=== PATIENT | male | born 1975 | race American Indian/Alaskan Native ===

== ENCOUNTER 2018-04-06 06:41 | Day surgery (SDC) | payer OTHER, SELFPAY ==
[2018-04-06 08:51] LABS: Basophils # (Auto) 0.1 K/mm3 (0.0-0.1); Basophils % (Auto) 1.2 % (0.0-1.8); Eosinophils # (Auto) 0.3 K/mm3 (0.0-0.4); Eosinophils % (Auto) 6.8 % (0.0-4.3); Hematocrit 41.1 % (35.5-45.6); Hemoglobin 13.6 gm/dl (11.8-15.2); Lymphocytes # (Auto) 1.4 K/mm3 (1.2-5.4); Lymphocytes % (Auto) 31.8 % (13.4-35.0); Mean Corpuscular HGB Conc 33 % (32-34); Mean Corpuscular Hemoglobin 27 pg (28-32); Mean Corpuscular Volume 82 fl (84-94); Monocytes # (Auto) 0.4 K/mm3 (0.0-0.8); Monocytes % (Auto) 9.3 % (0.0-7.3); Platelet Count 204 K/mm3 (140-440); Red Blood Count 5.05 M/mm3 (3.65-5.03); Red Cell Distribution Width 13.7 % (13.2-15.2)
[2018-04-06] MEDS ORDERED: NACL 0.9% 500 ML 500 ML IV SCH (09:00)
[2018-04-06 09:01] LABS: INR 0.92 (0.87-1.13)
[2018-04-06 09:03] LABS: BUN/Creatinine Ratio 14; Blood Urea Nitrogen 14 mg/dL (9-20); Calcium 8.7 mg/dL (8.4-10.2); Hemolysis Index 8
[2018-04-06] MEDS ORDERED: CALAN ONE (11:41)
[2018-04-06] MEDS ORDERED: HEPARIN 10,000 UNITS/10 ML ONE (11:41)
[2018-04-06] MEDS ORDERED: SUBLIMAZE ONE (11:41)
[2018-04-06] MEDS ORDERED: HEPARIN/NS 5000 UNIT/500ML(CATH LAB) 1,000 ML IR ONE (11:41)
[2018-04-06] MEDS ORDERED: XYLOCAINE 2% INFILTRATI ONE (11:41)
[2018-04-06] MEDS ORDERED: VERSED ONE (11:41)
[2018-04-06] MEDS ORDERED: NITROGLYCERIN SYRINGE 3 ML ONE (11:42)
--- NOTE | 2018-04-06 13:50 | Cardiac Catherization Report ---
CARDIAC CATHETERIZATION REASON FOR PROCEDURE: Chest pain and abnormal thallium stress test. PROCEDURES: 1. Left heart catheterization. 2. Selective left and right coronary angiography. 3. Left ventricular angiography. 4. Sedation time, start 12:23 and end 12:41. The patient was prepped and draped in a sterile fashion after informed consent. The right radial cath site was prepped and draped after a negative Alli's test. The right radial artery was entered using Seldinger technique, followed by placement of a 6-Uzbek hydrophilic sheath. Selective left and right coronary angiography was performed using #3.5 left Sam, and a #4 right Sam. Angiography of the left ventricle was performed using a pigtail catheter. The catheters were removed, sheath removed, and hemostasis achieved using a TR band. The patient was returned to the postprocedural unit in stable condition. There were no complications. FINDINGS: HEMODYNAMICS: Left ventricular end-diastolic pressure was 15. This was following coronary angiography. Ascending aortic pressure was 150/102. There was no significant pressure gradient on pullback across the aortic valve. CORONARY ANGIOGRAPHY: Left main coronary artery was angiographically normal. There were mild irregularities of the diagonal branches of the LAD, otherwise the LAD system was free of significant disease. The circumflex artery contained mild luminal narrowing in its mid obtuse marginal branch. The right coronary artery was dominant and essentially angiographically normal. The left ventricle was moderately to severely dilated. There was severe left ventricular systolic dysfunction, ejection fraction estimated at 20%. CONCLUSION: 1. Mild irregularities as above, no significant obstructive coronary disease. 2. Dilated, nonischemic cardiomyopathy, severe left ventricular systolic dysfunction, ejection fraction estimated at 20%. RECOMMENDATION: 1. Medical therapy for nonischemic cardiomyopathy. 2. Risk factor modification. JOB# [id number] CA/NTS
--- NOTE | 2018-04-06 14:32 | Discharge Summary ---
Short Stay Discharge Plan Activity: advance as tolerated Weight Bearing Status: Full Weight Bearing Diet: low fat, low cholesterol, low salt, diabetic Wound: keep clean and dry Special Instructions: no heavy lifting (3 days), hold Metformin (48 hrs) Additional Instructions: Hold Metformin 48hrs, Rx for Glyburide 5mg BID for 2 days. Follow up with: GIACOMO DIANA II, MD [Primary Care Provider] - 7 Days Forms: CardCat PCI D/C Instructions, Work/School Excuse Out Patient
[2018-04-06] MEDS ORDERED: NACL 0.9% 1000 ML 1,000 ML IV SCH (16:00)
[2018-04-06 16:36] VITALS: BP 171/113
== END 2018-04-06 17:00 | disposition home or self-care (01) ==
LOC: CATHLABREC 06:41
PROVIDERS: ATTEND Internal Medicine Cardiovascular Disease
DX: I42.0 Dilated cardiomyopathy (principal); I10 Essential (primary) hypertension; Z79.899 Other long term (current) drug therapy; Z79.01 Long term (current) use of anticoagulants; Z88.8 Allergy status to other drugs, medicaments and biological substances; Z87.891 Personal history of nicotine dependence; Z98.890 Other specified postprocedural states; Z86.2 Personal history of diseases of the blood and blood-forming organs and certain disorders involving the immune mechanism
CPT/HCPCS: 36415; 80048; 85025; 85610; 85730; 93005; 93010; 93458; 99156; 99157; C1894; J1644; J2250; J3010; J7040; Q9967